=== PATIENT | male | born 1975 | race Caucasian/White ===

== ENCOUNTER 2019-12-20 13:30 | Emergency (ER) | payer SELFPAY ==
[~2019-12-20] VITALS: Ht 162.6 cm; Wt 81.6 kg
--- NOTE | 2019-12-20 13:35 | NUR ---
PT W/C ASSISTED TO BED 2.
[2019-12-20 13:37] VITALS: BP_SYST 128; BP_SYST 28; BP_DIAS 94
[2019-12-20] MEDS ORDERED: ACETAMINOPHEN EXTRA STRENGTH 500 MG TAB ONE (13:38)
[2019-12-20] MEDS ORDERED: ACETAMINOPHEN EXTRA STRENGTH 500 MG TAB PO ONE (13:45)
--- NOTE | 2019-12-20 13:57 | NUR ---
44/M BIB FROM HOME WITH C/O FEVER, VOMITING, SOB , BODY ACHES X TODAY. TEMP 101.7, O2 SAT 94% AT TRIAGE. PT HAS COVID + RESULT UNKNOWN DATE. NO RESP DISTRESS. PLACED ON BEDSIDE MONITOR, READING 98% RA AND RR 13. NO ACTIVE VOMITING AT THIS TIME.
--- NOTE | 2019-12-20 14:11 | NUR ---
DR. SOMERS EVALUATING PT AT BEDSIDE
--- NOTE | 2019-12-20 14:12 | NUR ---
ERMD AT BEDSIDE.
--- NOTE | 2019-12-20 14:17 | NUR ---
DR. SOMERS ORDERED TORADOL IVP. DR. SOMERS AWARE OF PT REPORTING ALLERGY TO IBUPROFEN (PT GETS DIZZINESS). PER CHATA VARNER TO ADMIN TORADOL IVP.
[2019-12-20] MEDS ORDERED: KETOROLAC 30 MG/ML VIAL IVP ONE (14:20)
[2019-12-20] MEDS ORDERED: ONDANSETRON 4 MG/2 ML VIAL IVP ONE (14:20)
--- NOTE | 2019-12-20 14:37 | NUR ---
COVID SWAB OBTAINED AND DROPPED OFF AT LAB W/ COVID PAPERWORK.
--- NOTE | 2019-12-20 14:50 | NUR ---
PT STATES HE FEELS BETTER, PAIN DECREASED AND NAUSEA DECREASED.
--- NOTE | 2019-12-20 14:55 | NUR ---
Patient discharged with v/s stable. Written and verbal after care instructions given and explained. Patient alert, oriented and verbalized understanding of instructions. Ambulatory with steady gait. All questions addressed prior to discharge. ID band removed. Patient advised to follow up with PMD. Rx of ZOFRAN AND PREDNISONE given. Patient educated on indication of medication including possible reaction and side effects. COVID ISO PRECAUTIONS GIVEN. Opportunity to ask questions provided and answered.
[2019-12-20 14:57] VITALS: BP 127/81
== END 2019-12-20 14:55 | disposition home or self-care (01) ==
LOC: MED 13:30
DX: R11.2 Nausea with vomiting, unspecified (principal); R05 Cough; Z88.6 Allergy status to analgesic agent; Z20.828 Contact with and (suspected) exposure to other viral communicable diseases
CPT/HCPCS: 96374; 96375; 99284; J1885; J2405; U0003